=== PATIENT | female | born 1975 | race Caucasian/White ===

== ENCOUNTER 2016-09-28 17:16 | Emergency (ER) | payer MEDICAID | END 2016-09-28 21:35 | disposition home or self-care (01) | LOC: D.ER 17:16 | DX: L03.011 Cellulitis of right finger (principal); M79.644 Pain in right finger(s); Z85.3 Personal history of malignant neoplasm of breast; F17.200 Nicotine dependence, unspecified, uncomplicated ==

== ENCOUNTER 2018-02-08 15:30 | Emergency (ER) | payer MEDICAID ==
[~2018-02-08] VITALS: Ht 170.2 cm; Wt 85.0 kg
[2018-02-08 15:36] VITALS: Ht 170.2 cm; Wt 85.0 kg
[2018-02-08] MEDS ORDERED: VOLTAREN75 MG PO (17:40)
[2018-02-08] MEDS ORDERED: VIBRAMYCIN 100100 MG PO (17:40)
[2018-02-08 18:43] VITALS: BP 134/75
== END 2018-02-08 18:33 | disposition home or self-care (01) ==
LOC: D.ER 15:30
DX: L03.012 Cellulitis of left finger (principal); F17.200 Nicotine dependence, unspecified, uncomplicated

== ENCOUNTER 2018-06-26 13:08 | Emergency (ER) | payer MEDICAID ==
[~2018-06-26] VITALS: Ht 170.2 cm; Wt 90.7 kg
[~2018-06-26 13:08] MED LIST: VIBRAMYCIN 100100 MG PO; VOLTAREN75 MG PO
[2018-06-26 13:18] VITALS: BP 123/71; Ht 170.2 cm; Wt 90.7 kg
[2018-06-26] MEDS ORDERED: BACTRIM DS1 TAB PO (15:35)
== END 2018-06-26 16:13 | disposition home or self-care (01) ==
LOC: D.ER 13:08
DX: L03.011 Cellulitis of right finger (principal); F17.200 Nicotine dependence, unspecified, uncomplicated